=== PATIENT | female | born 1995 | race Caucasian/White ===

== ENCOUNTER 2017-04-27 19:39 | Emergency (ER) | payer MEDICAID ==
[~2017-04-27] VITALS: Ht 160 cm; Wt 54.4 kg
[2017-04-27 20:07] VITALS: BP 124/82
[2017-04-27] MEDS ORDERED: IBUPROFEN600 MG ORAL (20:13)
[2017-04-27 20:18] VITALS: BP 124/82
--- NOTE | 2017-04-27 20:28 | Emergency Room Report ---
History of Present Illness General Chief Complaint: Chest Pain Source: Patient Present Illness HPI 21-year-old female presents ED complaining of chest pain times one week. Pain is midsternal, dull, 5 at 10, nonradiating. Worse with bending and moving. Patient states she goes to the gym every day. Denies shortness of breath. Father is at bedside-believes it is a muscle strain but patient wanted to be checked out. Denies smoking or drug use. No other aggravating relieving factors. Denies any other associated symptoms Allergies: Coded Allergies: No Known Allergies (Unverified , 04/27/17) Patient History Past Medical History: none Past Surgical History: none Pertinent Family History: none Social History: Denies: alcohol use, drug use, smoking Last Menstrual Period: LAST 2 WEEKS Now: No Immunizations: UTD Reviewed Nursing Documentation: PMH: Agreed, PSxH: Agreed Nursing Documentation-PMH Past Medical History: No Stated History Review of Systems All Other Systems: negative except mentioned in HPI Physical Exam Vital Signs Date Time Temp Pulse Resp B/P Pulse Ox O2 Delivery O2 Flow Rate FiO2 04/27/17 19:42 98.8 81 18 150/79 99 Room Air Sp02 EP Interpretation: reviewed, normal General Appearance: no apparent distress, alert, GCS 15, non-toxic Head: normocephalic Eyes: bilateral eye PERRL, bilateral eye normal inspection ENT: normal ENT inspection Neck: normal inspection Respiratory: lungs clear, normal breath sounds, speaking full sentences, other - reproducible midsternal chest wall pain Cardiovascular #1: regular rate, rhythm, no edema Gastrointestinal: normal inspection Rectal: deferred Genitourinary: no CVA tenderness Musculoskeletal: normal inspection Neurologic: alert, oriented x3, responsive, motor strength/tone normal, sensory intact, speech normal Psychiatric: normal inspection Skin: normal inspection Lymphatic: normal inspection Medical Decision Making Diagnostic Impression: Primary Impression: Chest wall pain ER Course Hospital Course 21-year-old female presents ED complaining of reproducible chest wall pain x 1 week Differential diagnoses include: Rib fracture, MS/unstable angina, contusion, muscle strain Clinical course Patient placed on stretcher. After initial history my physical exam reveals a young female in no acute distress. There is sternal reproducible chest wall pain. No bruising. Lungs clear. I discussed findings with the patient. I believe the pain is muscular pain/ costochondritis. Muscular in origin. Not likely cardiac. Patient is young without any cardiac risk factors. However I did offer to check labs and EKG. Patient declined lab work, she agreed to EKG. Declined Pain medication EKG shows no ischemic changes, normal sinus rhythm. Reassurance given to patient. I. I feel this is a highly complex case requiring extensive working including EKG/Rhythm strip, Xray/CT/US, Blood/urine lab work, repeat exams while in ED, and administration of strong opiates/narcotics for pain control, admission to hospital or close patient follow up. Diagnosis - chest wall pain Stable and discharged to home with prescription for Motrin. apply heat. avoid heavy lifting. Instructed to followup with PMD. Return to ED if symptoms recur or worsen EKG Diagnostic Results Rate: normal Rhythm: NSR ST Segments: no acute changes ASA given to the pt in ED: No Rhythm Strip Diag. Results EP Interpretation: yes Rhythm: NSR, no PVC's, no ectopy Last Vital Signs Date Time Temp Pulse Resp B/P Pulse Ox O2 Delivery O2 Flow Rate FiO2 04/27/17 20:18 98.8 78 18 124/82 100 Room Air Status: improved Disposition: HOME, SELF-CARE Condition: Stable Scripts Ibuprofen* (MOTRIN*) 600 Mg Tablet 600 MG ORAL Q8H Y for For Pain, #30 TAB 0 Refills Prov: BRINDA QUEZADA M.D. 04/27/17 Patient Instructions: Costochondritis, [id number], Chest Wall Pain, Easy-to- Read BRINDA QUEZADA M.D. April 27, 2017 20:28
--- NOTE | 2017-04-29 16:58 | Cardiology Report ---
APPROVED REPORT EKG Measurement Heart [id number] Normal sinus rhythm with sinus arrhythmia Normal ECG
== END 2017-04-27 20:15 | disposition home or self-care (01) ==
LOC: EMR 20:11
DX: R07.89 Other chest pain (principal)
CPT/HCPCS: 93005; 99283

== ENCOUNTER 2018-04-26 16:04 | Emergency (ER) | payer MEDICAID ==
[~2018-04-26] VITALS: Ht 157.5 cm; Wt 53.5 kg
[~2018-04-26 16:04] MED LIST: IBUPROFEN600 MG ORAL
[2018-04-26] MEDS ORDERED: Dexamethasone 4mg/ml vial IM ONE (16:30)
[2018-04-26] MEDS ORDERED: Bicillin LA 1.2 Million Units Syr IM ONE ×2 (16:30→17:09)
[2018-04-26 17:00] VITALS: BP 113/70
[2018-04-26] MEDS ORDERED: IBUPROFEN600 MG ORAL (17:02)
--- NOTE | 2018-04-26 17:31 | Emergency Room Report ---
History of Present Illness General Chief Complaint: Sore Throat Source: Patient Present Illness [facility] . Patient is a 22-year-old female presenting for sore throat and fever for the past 2 days. She states that she gets strep throat approximately once a year and this feels the same for her. She has not tried any medications. Pain is an 8 out of 10 dull ache to the back of the throat and does not radiate. Worse with swallowing. She denies any other symptoms including nausea, vomiting, shortness of breath Allergies: Coded Allergies: No Known Allergies (Unverified , 04/27/17) Patient History Past Medical History: see triage record Pertinent Family History: none Last Menstrual Period: 04/08/18 Reviewed Nursing Documentation: PMH: Agreed; PSxH: Agreed Nursing Documentation-PMH Past Medical History: No Stated History Review of Systems All Other Systems: negative except mentioned in HPI Physical Exam Vital Signs Date Time Temp Pulse Resp B/P (MAP) Pulse Ox O2 Delivery O2 Flow Rate FiO2 04/26/18 16:07 99.0 106 18 132/83 98 Room Air 99.0 Sp02 EP Interpretation: reviewed, normal General Appearance: no apparent distress, alert, GCS 15, non-toxic Head: normocephalic, atraumatic Eyes: bilateral eye normal inspection, bilateral eye PERRL ENT: uvula midline, tonsillar swelling, pharyngeal erythema, tonsillar exudate Neck: full range of motion, supple/symm/no masses Respiratory: chest non-tender, lungs clear, normal breath sounds, speaking full sentences Musculoskeletal: back normal, gait/station normal, normal range of motion, non- tender Neurologic: alert, oriented x3, responsive, motor strength/tone normal, sensory intact, speech normal Psychiatric: judgement/insight normal, memory normal, mood/affect normal, no suicidal/homicidal ideation Skin: normal color, no rash, warm/dry, well hydrated Lymphatic: adenopathy Medical Decision Making PA Attestation Dr. Gaston is my supervising physician. Patient management was discussed with my supervising physician Diagnostic Impression: Primary Impression: Pharyngitis, acute Qualified Codes: J02.9 - Acute pharyngitis, unspecified ER Course Patient is a 22-year-old female presenting for sore throat and fever for the past 2 days. Differential diagnosis include but not limited to pharyngitis, peritonsillar abscess, sinusitis, AOM, bronchitis Physical exam: Afebrile at tirage and febrile at time of DC. No apparent distress HEENT exam: There is bilateral tonsillar edema, erythema, and exudate. Uvula midline. Moist mucous membranes. There is bilateral cervical lymphadenopathy. Lungs are clear to auscultation bilaterally Skin is warm and dry. No rash The patient is given IM Decadron and penicillin G. She will follow up with primary care. ER precautions are given Last Vital Signs Date Time Temp Pulse Resp B/P (MAP) Pulse Ox O2 Delivery O2 Flow Rate FiO2 04/26/18 17:12 101.0 04/26/18 16:07 106 18 132/83 98 Room Air Status: improved Disposition: HOME, SELF-CARE Condition: Improved Scripts Ibuprofen* (MOTRIN*) 600 Mg Tablet 600 MG ORAL Q8H PRN for For Pain, #30 TAB 0 Refills Prov: TIA KAPLAN 04/26/18 Patient Instructions: Tonsillitis, Sore Throat Additional Instructions: I discussed my findings with the patient. All questions and concerns have been answered. Treatment and medication compliance have been addressed. I advised the patient that they need to follow up with PMD in 3-5 days. Return to ED if pain remains or worsens, cough worsens or remains, you notice blood in your sputum, you notice wheezing, you experience a fever, or if needed for any reason. Patient verbalized understanding of discharge instructions. TIA KAPLAN April 26, 2018 17:31
[2018-04-26 18:03] VITALS: BP 117/78
== END 2018-04-26 18:00 | disposition home or self-care (01) ==
LOC: EMR 16:40
DX: J02.9 Acute pharyngitis, unspecified (principal)
CPT/HCPCS: 96372; 99283; J0561; J1100